=== PATIENT | male | born 1995 | race Caucasian/White ===

== ENCOUNTER 2025-02-15 14:08 | Inpatient (IN) ==
[2025-02-15] MEDS: SODIUM CHLORIDE 0.9% 1,000 ML IV ONE (14:41)
--- NOTE | 2025-02-15 14:41 | Emergency Department Note ---
Impression & Plan Acute opioid withdrawal Admission ED Provider Note HPI: History obtained from patient. The patient is a 29-year-old gentleman who presents to the emergency department with concern for opioid withdrawal. Patient states that he is currently withdrawing from heroin, he states he last used yesterday evening. Patient states that he is interested in "detox". On arrival here to the ED the patient is hypertensive but otherwise hemodynamically stable, he is alert on arrival, he is mildly diaphoretic and appears to be having some mild rigors as well. Patient states that he has gone through opioid withdrawal in the past and did previously require an inpatient stay at a treatment facility. ROS: - Per HPI Differential Diagnosis: Acute opioid withdrawal, other polysubstance abuse, acute dehydration/acute kidney injury, critical electrolyte abnormalities, cyclic vomiting syndrome, amongst other potential pathologies. *Outpatient medications and allergy history reviewed. 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 Lab work shows no leukocytosis, hemoglobin is stable at 13.8, platelet count is normal, CMP does not show any evidence of any critical findings, renal function is normal. Urine drug screen is positive for fentanyl, amphetamines, MDMA, and marijuana. On multiple reevaluations the patient continues to state that he feels nauseous. He was given different medications for this without complete improvement. Patient states he is not interested in placement to an inpatient detox facility, he states he is concerned he might be there for too long and is requesting inpatient admission for symptom management. Given the patient's request, I did discuss the patient's presentation with the [facility], and the patient was placed for admission to the service of Dr. Cisneros. Consultants/Discussions held with other healthcare providers: - Hospitalist, Dr. Cisneros Disposition discussion held by myself with: - Patient Diagnosis: 1. Acute opioid withdrawal syndrome 2. Intractable nausea and vomiting Disposition: Admission Liang Da Silva DO Emergency Medicine Past Med/Surg History Problem List (Updated 02/15/25 @ 17:04 by Liang Da Silva DO) Acute opioid withdrawal (Acute) Social History (System 12/11/18 @ 10:29 by Marivel Sharp) Smoking Status: Current every day smoker Tobacco Type: E-cigarettes / Vaping Hx Substance Use: Yes (heroine) Feels Safe at Home: Yes Results & Data (ED) Vital Signs Vital Signs - 24 hr 02/15/25 14:11 02/15/25 14:27 02/15/25 14:29 Temperature 36.5 C Temperature Source Temporal Artery Scan Pulse Rate 118 H 82 Pulse Rate [Apical] Respiratory Rate 18 Respiratory Effort / Characteristics Non-Labored Spontaneous Respiratory Depth Normal Respiratory Pattern Regular Blood Pressure 153/100 H Blood Pressure [Right Arm] Blood Pressure Mean 117 Blood Pressure Mean [Right Arm] Blood Pressure Position [Right Arm] Pulse Oximetry 97 98 Oxygen Delivery Method Room Air Room Air Sepsis Recent Fever Within 48 Hours No Sepsis New/Unexplained Change in Mental Status N/A Sepsis Action Taken by Nursing No Action Required 02/15/25 14:29 02/15/25 14:38 02/15/25 15:07 Temperature 37.0 C Temperature Source Oral Pulse Rate 81 Pulse Rate [Apical] 81 71 Respiratory Rate 22 20 16 Respiratory Effort / Characteristics Non-Labored Spontaneous Respiratory Depth Normal Respiratory Pattern Regular Blood Pressure Blood Pressure [Right Arm] 153/117 H 160/103 H Blood Pressure Mean Blood Pressure Mean [Right Arm] 129 122 Blood Pressure Position [Right Arm] Semi-fowlers Semi-fowlers Pulse Oximetry 100 97 97 Oxygen Delivery Method Room Air Room Air Room Air Sepsis Recent Fever Within 48 Hours Sepsis New/Unexplained Change in Mental Status Sepsis Action Taken by Nursing Laboratory Data 02/15/25 14:30 02/15/25 14:30 Lab Results 02/15/25 Range/Units 14:30 WBC 10.73 (4.8-10.8) K/ul RBC 4.83 (4.70-6.10) M/uL Hgb 13.8 L (14.0-18.0) g/dl Hct 42.2 (42.0-52.0) % MCV 87.4 (80.0-100.0) fL MCH 28.6 (25.0-34.0) pg MCHC 32.7 (32.0-36.0) g/dL RDW Std Deviation 51.0 H (36.4-46.3) fL RDW Coeff of [place] 15.9 H (11.5-14.5) % Plt Count 378 (130-400) K/uL MPV 9.9 (9.4-12.4) fL Immature Gran % (Auto) 0.5 % Neut % (Auto) 82.5 % Lymph % (Auto) 9.9 % [place] % (Auto) 6.2 % Eos % (Auto) 0.6 % Baso % (Auto) 0.3 % Neut # (Auto) 8.86 H (1.40-6.50) K/uL Lymph # (Auto) 1.06 L (1.20-3.40) K/uL [place] # (Auto) 0.67 H (0.11-0.59) K/uL Eos # (Auto) 0.06 (0.00-0.50) K/uL Baso # (Auto) 0.03 (0.00-0.20) K/uL Immature Gran # (Auto) 0.05 (0.01-0.20) K/uL Sodium 143 (136-145) mmol/L Potassium 3.9 (3.5-5.1) mmol/L Chloride 104 (98-107) mmol/L Carbon Dioxide 29 (21-32) mmol/L Anion Gap 10 (3-11) BUN 21 (6-23) mg/dl Creatinine 0.86 (0.6-1.4) mg/dl Est Cr Clr Drug Dosing 107.6 ml/min eGFR 120.20 BUN/Creatinine Ratio 24.4 H (10-20) Glucose 150 H (70-99(Fasting)) mg/dl Calcium 10.0 (8.6-10.3) mg/dl Total Bilirubin 0.5 (0.2-1.0) mg/dl AST 25 (13-39) U/L ALT 19 (7-52) U/L Alkaline Phosphatase 81 (34-104) U/L Total Protein 8.7 H (6.0-8.3) gm/dl Albumin 4.5 (3.4-5.0) gm/dl Globulin 4.2 H (2.5-4.0) gm/dl Albumin/Globulin Ratio 1.1 (0.9-2) Lipase 7 L (11-82) U/L Urine Opiates Screen Neg (Neg) Ur Methadone, Qual Neg (Neg) Urine Fentanyl Screen Pos H (Neg) Urine Barbiturates Neg (Neg) Ur Phencyclidine (PCP) Neg (Neg) U Amphetamin/Meth Scrn Pos H (Neg) MDMA (Ecstasy) Screen Pos H (Neg) U Benzodiazepines Scrn Neg (Neg) Ur Cocaine Metabolite Neg (Neg) U Marijuana (THC) Screen Pos H (Neg) Administered Medications Clonidine HCl (Clonidine Hcl 0.2 Mg/24 Hr Transderm Sys) 1 patch TD Q7D [facility] Stop: 03/17/25 14:44 Last Admin: 02/15/25 15:36 Dose: 1 patch Documented By: BRADLEY Lopez (Remove Clonidine Patch) 1 each N/A CQWK [facility] Stop: 03/17/25 14:44 Last Admin: 02/15/25 15:37 Dose: Not Given Documented By: BRADLEY Lopez (Check Clonidine Patch Placement) 1 each N/A QS [facility] Stop: 03/17/25 15:59 Last Admin: 02/15/25 15:41 Dose: Not Given Documented By: BRADLEY Discontinued Medications Diphenhydramine HCl (Diphenhydramine 50 Mg/Ml Vial) 12.5 mg IV NOW STA Stop: 02/15/25 16:06 Last Admin: 02/15/25 16:10 Dose: 12.5 mg Documented By: BRADLEY Sodium Chloride (Nss) 1,000 mls @ 999 mls/hr IV .Q1H1M ONE Stop: 02/15/25 15:39 Last Infusion: 02/15/25 15:39 Dose: Infused Documented By: Admin: 02/15/25 14:41 Dose: 999 mls/hr Documented By: BRADLEY Metoclopramide HCl (Metoclopramide Hcl Inj 5 Mg/Ml 2 Ml Vial) 10 mg IV NOW STA Stop: 02/15/25 16:06 Last Admin: 02/15/25 16:08 Dose: 10 mg Documented By: BRADLEY Ondansetron HCl (Ondansetron Inj 2 Mg/Ml 2 Ml Vial) 4 mg IV NOW STA Stop: 02/15/25 14:40 Last Admin: 02/15/25 14:44 Dose: 4 mg Documented By: BRADLEY Discharge Plan Visit Data Chief Complaint: Detox Request Stated Complaint: DOPE SICK ED Provider: Liang Da Silva Discharge Problem: Acute opioid withdrawal Patient Disposition: Admitted As Inpatient Condition: Fair Forms Stand Alone Forms: [facility], Suicide Prevention Resources Referrals Referrals: PCP,NO [Primary Care Provider] -
[2025-02-15] MEDS: ONDANSETRON INJ 2 MG/ML 2 ML VIAL IV STA (14:44)
[2025-02-15 14:52] LABS: Hematocrit (blood only) 42.2 % (42.0-52.0); Hemoglobin 13.8 g/dl (14.0-18.0); Immature Granulocytes # (auto) 0.05 K/uL (0.01-0.20); Immature Granulocytes % (auto) 0.5 %; Mean Corpuscular Hemoglobin 28.6 pg (25.0-34.0); Mean Corpuscular Volume 87.4 fL (80.0-100.0); Platelet Count 378 K/uL (130-400); RDW Standard Deviation 51.0 fL (36.4-46.3); Red Blood Count 4.83 M/uL (4.70-6.10); White Blood Count 10.73 K/ul (4.8-10.8)
[2025-02-15 15:12] LABS: Alanine Aminotransferase 19.0 U/L (7-52); Albumin Globulin Ratio 1.1 (0.9-2); Alkaline Phosphatase 81.0 U/L (34-104); Anion Gap 10.0 (3-11); Bilirubin,Total 0.5 mg/dl (0.2-1.0); Blood Urea Nitrogen 21.0 mg/dl (6-23); Calcium 10.0 mg/dl (8.6-10.3); Carbon Dioxide 29.0 mmol/L (21-32); Chloride 104.0 mmol/L (98-107); Creatinine Clr Calc Pharmacy 107.6 ml/min; Globulin 4.2 gm/dl (2.5-4.0); Glucose 150.0 mg/dl (70-99(Fasting)); Lipase 7.0 U/L (11-82); Potassium 3.9 mmol/L (3.5-5.1); Sodium 143.0 mmol/L (136-145); Total Protein 8.7 gm/dl (6.0-8.3)
[2025-02-15 15:34] LABS: Amphetamines+Metham, Urine Pos (Neg); MDMA (Ecstacy), Urine Pos (Neg); Marijuana, Urine Pos (Neg)
[2025-02-15] MEDS: REMOVE CLONIDINE PATCH SCH (15:37)
[2025-02-15] MEDS: CHECK CLONIDINE PATCH PLACEMENT SCH (15:40)
[2025-02-15] MEDS: METOCLOPRAMIDE HCL INJ 5 MG/ML 2 ML VIAL IV STA (16:08)
[2025-02-15] MEDS: diphenhydrAMINE 50 MG/ML VIAL IV STA (16:10)
[2025-02-15] MEDS: PANTOprazole 40 MG/10 ML SYR IV ONE (17:41)
--- NOTE | 2025-02-15 17:41 | History & Physical Report ---
Date of Service February 15, 2025 Assessment & Plan (1) Acute opioid withdrawal: Plan: Patient is a 29 year old male with no significant past medical history presenting with detox request following heroin withdrawal. Patient reports last using heroin yesterday morning/afternoon and started experiencing detox symptoms last night including nausea/vomiting/chills. He took Suboxone last night and then again this morning. Was brought here by his girlfriend to detox at the hospital. Reportedly, he has been on and off heroin for quite sometime, last withdrawal was a month ago, last inpatient rehab stay was a year ago. He is refusing inpatient rehab at this time with no definitive plan to achieve sobriety via rehab. Acute opioid withdrawal: * Admit to PCU for further management * UDS + fentanyl, amphetamines, ecstasy, marijuana. * Clonidine patch started in ED-- clonidine patch removed; COWS score 15 upon my assessment * Start COWS scoring Q6H with Clonidine as needed- Clonidine 0.1 mg COWS 8-12; Clonidine 0.2 mg COWS 12-24 * Intractable nausea in ED- will give phenergan as needed * EKG ordered and pending- denies history of IV drug use, r/o endocarditis * Anxiety/Restlessness noted- will give Lorazepam as needed * IV fluid replacement for now, NPO and advance when able * Discharge planning- refusing rehab at this time, will need OP services upon discharge DVT Ppx: Not indicated Code status: Full PCP: No PCP on file Dispo: PCU for further management of withdrawal Patient seen in collaboration with Dr. Cisneros. Please see addendum.I spent a total of 60 minutes coordinating, documenting and providing care for this patient excluding time spent in the performance of separately billed services or time spent by another provider/QHP. History of Present Illness Primary Care Provider: NO PCP Patient is a 29 year old male with no significant past medical history presenting with detox request following heroin withdrawal. Patient reports last using heroin yesterday morning/afternoon and started experiencing detox symptoms last night including nausea/vomiting/chills. He took Suboxone last night and then again this morning. Was brought here by his girlfriend to detox at the hospital. Reportedly, he has been on and off heroin for quite sometime, last withdrawal was a month ago, last inpatient rehab stay was a year ago. He is refusing inpatient rehab at this time with no definitive plan to achieve sobriety via rehab. Reporting headache, shortness of breath, nausea, vomiting, abdominal discomfort, anxiety, jittery feelings, chills. Denies chest pain, numbness, tingling, diarrhea. In the emergency room, he was hypertensive with BP's in 150's/110's, otherwise stable vital signs. UDS + fentanyl, amphetamines, ecstasy, marijuana. He was given 1 L NSS bolus, Clonidine patch, Zofran initially. For intractable nausea, he was then given Reglan and Benadryl. COWS score 15. BP trended down to 150's/90's. History of detox at [facility] 1 month ago and was given Suboxone at discharge. He began using illicit drugs again and took Suboxone last night and this morning for detox. Reportedly, he does not drink alcohol. History difficult to obtain due to given altered cognition. Allergies Allergy/AdvReac Type Severity Reaction Status Date / Time No Known Allergies Allergy Unverified 02/15/25 17:35 Home Medications Medication Instructions Recorded Confirmed Type No Known Home Medications 02/15/25 02/15/25 History Past Med/Surg History Problem List Acute opioid withdrawal (Acute) Social History Smoking Status: Current every day smoker Tobacco Type: E-cigarettes / Vaping Hx Substance Use: Yes (heroine) Feels Safe at Home: Yes Review of Systems Review of Systems: All systems reviewed & are unremarkable except as noted in HPI & below Physical Exam Physical Exam: VITALS: Reviewed. WEIGHT/BMI reviewed. GEN: Healthy appearing, well-developed, NAD. PSYCH: Anxious, restless, oriented x 3, answering questions HEENT -Head: NC/AT; -Eyes: PERRL, EOMI. No discharge or redn ess; -Ears: External ears are normal. -Nose: Normal nares. -Mouth and throat: MMM. Normal gums, muc germán, palate,. Good dentition. NECK: Supple, with no masses. CV: RRR, no m/r/g. LUNGS: CTAB, no w/r/c. ABD: Soft, tender, NBS, no masses or organomegaly. : N/A SKIN: Warm, well perfused. Multiple tattoos. No noticeable track bhandari to forearms. MSK: No deformities EXT: No clubbing, cyanosis, or edema. NEURO: Slight tremor. Pupils dilated to 7 and briskly reactive, Normal muscle strength and tone. No focal deficits. Results & Data Results & Data Vital Signs (Past 12 Hours) Vital Signs Temp Pulse Pulse Resp BP BP Pulse Ox 02/15/25 17:00 73 20 156/98 H 98 02/15/25 15:07 71 16 160/103 H 97 02/15/25 14:38 81 20 97 02/15/25 14:29 37.0 C 81 22 153/117 H 100 02/15/25 14:29 98 02/15/25 14:27 82 02/15/25 14:11 36.5 C 118 H 18 153/100 H 97 O2 Del Method 02/15/25 17:00 Room Air 02/15/25 15:07 Room Air 02/15/25 14:38 Room Air 02/15/25 14:29 Room Air 02/15/25 14:29 Room Air 02/15/25 14:27 02/15/25 14:11 Room Air Laboratory Results Short CBC 02/15/25 Range/Units 14:30 WBC 10.73 (4.8-10.8) K/ul Hgb 13.8 L (14.0-18.0) g/dl Hct 42.2 (42.0-52.0) % Plt Count 378 (130-400) K/uL BMP 02/15/25 14:30 Sodium 143 Potassium 3.9 Chloride 104 Carbon Dioxide 29 BUN 21 Creatinine 0.86 Glucose 150 H Calcium 10.0 Liver Function 02/15/25 Range/Units 14:30 Total Bilirubin 0.5 (0.2-1.0) mg/dl AST 25 (13-39) U/L ALT 19 (7-52) U/L Alkaline Phosphatase 81 (34-104) U/L Albumin 4.5 (3.4-5.0) gm/dl Code Status & VTE Plan VTE Prophylaxis Plan VTE Prophylaxis will be ordered: No Reason for no VTE drug order: Contraindicated
[2025-02-15] MEDS: PROMETHAZINE 12.5 MG/50.5 ML BAG IV STA (17:44)
[2025-02-15] MEDS ORDERED: KETOROLAC TROMETHAMINE 15 MG/ML VIAL IV PRN (18:28)
[2025-02-15] MEDS ORDERED: BISMUTH SUBSALICYLATE 262 MG CHEW PO PRN (18:28)
[2025-02-15] MEDS ORDERED: ACETAMINOPHEN 325 MG TAB PO PRN (18:28)
[2025-02-15] MEDS ORDERED: DICYCLOMINE HCL 10 MG CAP PO PRN (18:28)
--- NOTE | 2025-02-15 18:38 | Communication Note ---
Date of Service: February 15, 2025 Attending Addendum: Case reviewed with the advanced practitioner. I have personally performed a history and physical examination on the patient. I have reviewed the advanced practitioner's documentation on the date of service referenced in note, and I agree with, and take responsibility for the plan of care. please refer to her notes for full details patient seen and examined, records reviewed by myself as well on exam, patient seen resting in bed, covered up with blankets initially very irritable states he still feels very nauseated, (+) chills has some mild abdominal discomfort no chest pain, dyspnea, palpitations, dizziness admits to using heroin daily, methadone occasionally, denies use of alcohol, other substances denies depression, suicidal ideations no other symptoms VS noted and reviewed oriented x 3, irritable, not in distress, speaks in sentences with no effort nor accessory muscle use normal rate, regular rhythm, no murmurs clear breath sounds bilaterally non distended, soft, nontender no bipedal edema, erythema, warmth no neuro deficits all labs, imaging noted and reviewed ASSESSMENT AND PLAN> HEROIN, METHADONE USE patient presents to the ED for "detoxification" declines referral to inpatient rehab facility UDS positive for Fentanyl, Amph/Meth, MDMA, Marijuana -- Clonidine q6h PRN based on Clinical Opioid Withdrawal Score PRN Toradol, Phenergan, Lorazepam, Bentyl Protonix IV -- check blood cultures to r/o Bacteremia, if positive, order Echo to r/o IE other diagnoses and plan of care as per advanced practitioner's notes I spent a total of 60 minutes coordinating, documenting, and providing care for this patient, excluding time spent in the performance of separately billed services or time spent by another provider/QHP. Harlan Cisneros MD
[2025-02-15] MEDS: SODIUM CHLORIDE 0.9% 1,000 ML IV SCH (19:04)
[2025-02-15] MEDS: PROMETHAZINE 12.5 MG/50.5 ML BAG IV PRN (19:35)
--- NOTE | 2025-02-16 07:01 | Electrocardiogram Report ---
Test Reason : Blood Pressure : */* mmHG Vent. Rate : 83 BPM Atrial Rate : 83 BPM P-R Int : 146 ms QRS Dur : 92 ms QT Int : 400 ms P-R-T Axes : 42 31 28 degrees QTcB Int : 470 ms Normal sinus rhythm Incomplete right bundle branch block Borderline ECG No previous ECGs available Confirmed by Denys Briscoe ([id number]) on 02/16/2025 7:00:45 AM Referred By: REFERRED SELF Confirmed By: Denys Briscoe
--- NOTE | 2025-02-16 16:03 | Hospitalist Progress Note ---
Date of Service February 16, 2025 Assessment & Plan (1) Acute opioid withdrawal: Plan: Patient is a 29 year old male with no significant past medical history presenting with detox request following heroin withdrawal. Patient reports last using heroin Monday morning/afternoon and started experiencing detox symptoms including nausea/vomiting/chills. He took Suboxone 2 nights ago and then again the morning of admission. Was brought here by his girlfriend to detox at the hospital. Reportedly, he has been on and off heroin for quite sometime, last withdrawal was a month ago, last inpatient rehab stay was a year ago. He is refusing inpatient rehab at this time with no definitive plan to achieve sobriety via rehab. Acute opioid withdrawal: * Continue care in PCU for further management * UDS + fentanyl, amphetamines, ecstasy, marijuana. * Clonidine patch started in ED-- clonidine patch removed; COWS score 15 upon admission * Start COWS scoring Q6H with Clonidine as needed- Clonidine 0.1 mg COWS 8-12; Clonidine 0.2 mg COWS 12-24 * Intractable nausea in ED-continue phenergan as needed. No current nausea now * EKG ordered reviewed- denies history of IV drug use, r/o endocarditis * Anxiety/Restlessness noted- will give Lorazepam as needed * IV fluid replacement for now, patient would like to try liquids now, advance when able * Discharge planning- refusing rehab at this time, will need OP services upon discharge I spent a total of 50 minutes coordinating, documenting and providing care for this patient. Admission and Anticipated Discharge Date Admission Date: February 15, 2025 Subjective Chart, data and vital signs reviewed. Patient seen at bedside. He is not as nauseated. He would like to try a popsicle. He feels cold and chilled. He has intermittent sweating as well. Overall he feels better. He denies chest pain, shortness of breath or further vomiting. He denies headache. He denies diarrhea. He does not feel tremulous or shaky at this juncture in time. All other review of systems are negative or noncontributory. Physical Exam Physical Exam: General- adult young man seen at bedside, disheveled Head- atraumatic Eyes- PERRL but dilated, EOMI, anicteric ENT- oropharynx clear Neck- supple, no JVD, no adenopathy, no thyromegaly; Lungs- clear to auscultation and percussion Heart- regular rhythm; no murmur, no gallop, no rub appreciated Abdomen- normal bowel sounds, soft, nontender, no masses or hepatosplenomegaly Extremities- no pretibial edema, no calf tenderness; peripheral pulses intact Neuro- alert, oriented x 3; PERRL, EOMI; no focal deficits noted Skin- warm & slightly diaphoretic Results & Data Results & Data Vital Signs (Past 12 Hours) Vital Signs Temp Pulse Pulse Resp BP Pulse Ox O2 Del Method 02/16/25 15:42 37.0 C 103 H 20 148/85 H 99 Room Air 02/16/25 11:13 37.3 C 108 H 16 158/97 H 94 Room Air 02/16/25 09:00 93 H 02/16/25 07:35 36.9 C 67 20 151/97 H 97 Room Air Diagnostic Findings Laboratory Results WBC 10.73 K/ul (4.8-10.8) 02/15/25 14:30 RBC 4.83 M/uL (4.70-6.10) 02/15/25 14:30 Hgb 13.8 g/dl (14.0-18.0) L 02/15/25 14:30 Hct 42.2 % (42.0-52.0) 02/15/25 14:30 MCV 87.4 fL (80.0-100.0) 02/15/25 14:30 MCH 28.6 pg (25.0-34.0) 02/15/25 14:30 MCHC 32.7 g/dL (32.0-36.0) 02/15/25 14:30 RDW Std Deviation 51.0 fL (36.4-46.3) H 02/15/25 14:30 RDW Coeff of [place] 15.9 % (11.5-14.5) H 02/15/25 14:30 Plt Count 378 K/uL (130-400) 02/15/25 14:30 MPV 9.9 fL (9.4-12.4) 02/15/25 14:30 Immature Gran % (Auto) 0.5 % 02/15/25 14:30 Neut % (Auto) 82.5 % 02/15/25 14:30 Lymph % (Auto) 9.9 % 02/15/25 14:30 [place] % (Auto) 6.2 % 02/15/25 14:30 Eos % (Auto) 0.6 % 02/15/25 14:30 Baso % (Auto) 0.3 % 02/15/25 14:30 Neut # (Auto) 8.86 K/uL (1.40-6.50) H 02/15/25 14:30 Lymph # (Auto) 1.06 K/uL (1.20-3.40) L 02/15/25 14:30 [place] # (Auto) 0.67 K/uL (0.11-0.59) H 02/15/25 14:30 Eos # (Auto) 0.06 K/uL (0.00-0.50) 02/15/25 14:30 Baso # (Auto) 0.03 K/uL (0.00-0.20) 02/15/25 14:30 Immature Gran # (Auto) 0.05 K/uL (0.01-0.20) 02/15/25 14:30 Sodium 143 mmol/L (136-145) 02/15/25 14:30 Potassium 3.9 mmol/L (3.5-5.1) 02/15/25 14:30 Chloride 104 mmol/L (98-107) 02/15/25 14:30 Carbon Dioxide 29 mmol/L (21-32) 02/15/25 14:30 Anion Gap 10 (3-11) 02/15/25 14:30 BUN 21 mg/dl (6-23) 02/15/25 14:30 Creatinine 0.86 mg/dl (0.6-1.4) 02/15/25 14:30 Est Cr Clr Drug Dosing 107.6 ml/min 02/15/25 14:30 eGFR 120.20 02/15/25 14:30 BUN/Creatinine Ratio 24.4 (10-20) H 02/15/25 14:30 Glucose 150 mg/dl (70-99(Fasting)) H 02/15/25 14:30 Calcium 10.0 mg/dl (8.6-10.3) 02/15/25 14:30 Total Bilirubin 0.5 mg/dl (0.2-1.0) 02/15/25 14:30 AST 25 U/L (13-39) 02/15/25 14:30 ALT 19 U/L (7-52) 02/15/25 14:30 Alkaline Phosphatase 81 U/L (34-104) 02/15/25 14:30 Total Protein 8.7 gm/dl (6.0-8.3) H 02/15/25 14:30 Albumin 4.5 gm/dl (3.4-5.0) 02/15/25 14:30 Globulin 4.2 gm/dl (2.5-4.0) H 02/15/25 14:30 Albumin/Globulin Ratio 1.1 (0.9-2) 02/15/25 14:30 Lipase 7 U/L (11-82) L 02/15/25 14:30 Urine Opiates Screen Neg (Neg) 02/15/25 14:30 Ur Methadone, Qual Neg (Neg) 02/15/25 14:30 Urine Fentanyl Screen Pos (Neg) H 02/15/25 14:30 Urine Barbiturates Neg (Neg) 02/15/25 14:30 Ur Phencyclidine (PCP) Neg (Neg) 02/15/25 14:30 U Amphetamin/Meth Scrn Pos (Neg) H 02/15/25 14:30 MDMA (Ecstasy) Screen Pos (Neg) H 02/15/25 14:30 U Benzodiazepines Scrn Neg (Neg) 02/15/25 14:30 Ur Cocaine Metabolite Neg (Neg) 02/15/25 14:30 U Marijuana (THC) Screen Pos (Neg) H 02/15/25 14:30
[2025-02-17] MEDS: ONDANSETRON INJ 2 MG/ML 2 ML VIAL IV STA (09:27)
[2025-02-17 11:32] LABS: Hematocrit (blood only) 40.1 % (42.0-52.0); Hemoglobin 13.3 g/dl (14.0-18.0); Mean Corpuscular Hemoglobin 29.2 pg (25.0-34.0); Mean Corpuscular Volume 88.1 fL (80.0-100.0); Platelet Count 291 K/uL (130-400); RDW Standard Deviation 49.5 fL (36.4-46.3); Red Blood Count 4.55 M/uL (4.70-6.10); White Blood Count 8.90 K/ul (4.8-10.8)
[2025-02-17 11:43] LABS: Anion Gap 9.0 (3-11); Blood Urea Nitrogen 5.0 mg/dl (6-23); Calcium 9.3 mg/dl (8.6-10.3); Carbon Dioxide 26.0 mmol/L (21-32); Chloride 105.0 mmol/L (98-107); Creatinine Clr Calc Pharmacy 130.8 ml/min; Glucose 113.0 mg/dl (70-99(Fasting)); Potassium 3.8 mmol/L (3.5-5.1); Sodium 140.0 mmol/L (136-145)
[2025-02-17 12:18] VITALS: BP 130/74; RESP 16; TEMP 97.7; O2SAT 92
--- NOTE | 2025-02-17 14:04 | Discharge Summary ---
Discharge Summary Date of Service February 17, 2025 Principal Dx & Hospital Course #1 = Principal Diagnosis (1) Acute opioid withdrawal: Mr. Medina is a 29 year old male with no significant past medical history presenting with detox request following heroin withdrawal. Patient reported last using heroin Paddy morning/afternoon and started experiencing detox symptoms including nausea/vomiting/chills. He took Suboxone from a friend 2 nights ago and then again the morning of admission. His girlfriend ambrocio him to detox at the hospital.Patient with multiple attempts to undergo detox. Patient's course uneventful--marked by nausea and stomach discomfort. Patient ultimately reports good intake and declines any resources. Given stable vital signs and ability to tolerate po, patient discharged to home. Patient declined resources for OP assistance. PDMP review, patient no longer prescribed Subutex. #Acute opioid withdrawal: * COWS score 15 upon admission, started on clonidine prn, bentyl, and phenergan prn * patient tolerating diet * counselled patient on continued abstinence * Patient reports too many social barriers, including transport, that limit his desire for OP treatment; offered further case management discussion, patient declined * Offered PCP appointment, patient declined Notes For Next Care Provider Medication Changes From Visit none Admission HPI Per Admitting Provider Patient is a 29 year old male with no significant past medical history presenting with detox request following heroin withdrawal. Patient reports last using heroin yesterday morning/afternoon and started experiencing detox symptoms last night including nausea/vomiting/chills. He took Suboxone last night and then again this morning. Was brought here by his girlfriend to detox at the hospital. Reportedly, he has been on and off heroin for quite sometime, last withdrawal was a month ago, last inpatient rehab stay was a year ago. He is refusing inpatient rehab at this time with no definitive plan to achieve sobriety via rehab. Reporting headache, shortness of breath, nausea, vomiting, abdominal discomfort, anxiety, jittery feelings, chills. Denies chest pain, numbness, tingling, diarrhea. In the emergency room, he was hypertensive with BP's in 150's/110's, otherwise stable vital signs. UDS + fentanyl, amphetamines, ecstasy, marijuana. He was given 1 L NSS bolus, Clonidine patch, Zofran initially. For intractable nausea, he was then given Reglan and Benadryl. COWS score 15. BP trended down to 150's/90's. History of detox at [facility] 1 month ago and was given Suboxone at discharge. He began using illicit drugs again and took Suboxone last night and this morning for detox. Reportedly, he does not drink alcohol. History difficult to obtain due to given altered cognition. Admission Exam Per Admitting Provider VITALS: Reviewed. WEIGHT/BMI reviewed. GEN: Healthy appearing, well-developed, NAD. PSYCH: Anxious, restless, oriented x 3, answering questions HEENT -Head: NC/AT; -Eyes: PERRL, EOMI. No discharge or redness; -Ears: External ears are normal. -Nose: Normal nares. -Mouth and throat: MMM. Normal gums, mucosa, palate,. Good dentition. NECK: Supple, with no masses. CV: RRR, no m/r/g. LUNGS: CTAB, no w/r/c. ABD: Soft, tender, NBS, no masses or organomegaly. : N/A SKIN: Warm, well perfused. Multiple tattoos. No noticeable track bhandari to forearms. MSK: No deformities EXT: No clubbing, cyanosis, or edema. NEURO: Slight tremor. Pupils dilated to 7 and briskly reactive, Normal muscle strength and tone. No focal deficits. Discharge Exam Constitutional WD/WN, vitals as above Respiratory normal respiratory effort, lungs clear to auscultation Cardiovascular RRR, no murmur, no edema Gastrointestinal (Abdomen) normal bowel sounds, soft, nontender, no hepatosplenomegaly Musculoskeletal no cyanosis or clubbing, extremities motor strength 5/5 Updated Medication List Medication Instructions Recorded Confirmed Type No Known Home Medications 02/15/25 02/15/25 History Hospital Stay Data Consultations 02/15/25 16:34 ED Decision to Admit Stat Pending Results Patient Have Any Pending Studies at Discharge: No Discharge Instructions Given to Patient (Per Discharging Provider) You were admitted for opioid withdrawal It is recommended you continue abstinence from opioids. Total Time Total Time Spent Total Time Spent (In Minutes): 35
[2025-02-17] MEDS: BENZOCAINE 20% (ORAJEL) 11.9 GM TUBE MT PRN (14:42)
[2025-02-17 16:55] VITALS: PULSE 74
== END 2025-02-17 17:01 | disposition home or self-care (01) | DRG 897 ==
LOC: ED 14:08 → SUATTDRO 17:19 → 2S 17:19